=== PATIENT | male | born 1990 | race Caucasian/White ===

== ENCOUNTER 2021-11-15 09:32 | Emergency (ER) | payer OTHER ==
[~2021-11-15] VITALS: Ht 188 cm; Wt 112.7 kg
[2021-11-15] MEDS ORDERED: ACETAMINOPHEN 500 MG TAB PO ONE (11:50)
[2021-11-15] MEDS ORDERED: LIDOCAINE 2% MDV 20ML VIAL SC ONE (12:55)
[2021-11-15] MEDS ORDERED: BACT800T5 PO (15:33)
[2021-11-15 15:48] VITALS: BP 125/69
== END 2021-11-15 15:50 | disposition home or self-care (01) ==
LOC: M ED 09:32 → EDBD 09:32 → M ED 15:50
DX: L02.31 Cutaneous abscess of buttock (principal)

== ENCOUNTER 2022-07-04 13:49 | Emergency (ER) | payer OTHER ==
[~2022-07-04 13:49] MED LIST: BACT800T5 PO
[2022-07-04] MEDS ORDERED: LIDOCAINE W/EPINEPHRINE 1% 20ML VIAL SC ONE (16:25)
[2022-07-04] MEDS ORDERED: BACTRIM 160MG/800MG DS TAB PO ONE (17:10)
[2022-07-04] MEDS ORDERED: BACT800T5 PO (17:11)
[2022-07-04 17:26] VITALS: BP 124/76
== END 2022-07-04 17:36 | disposition home or self-care (01) ==
LOC: M ED 13:49
DX: L05.01 Pilonidal cyst with abscess (principal)